=== PATIENT | female | born 1985 | race Caucasian/White ===

== ENCOUNTER → 2019-11-03 11:24 | Outpatient (BNVA) | payer OTHER, SELFPAY | PROVIDERS: Visit Provider Family Medicine | DX: R05 Cough (principal) | CPT/HCPCS: 87804 ==

== ENCOUNTER → 2020-07-26 09:41 | Outpatient (BNVA) | payer OTHER, SELFPAY | PROVIDERS: Visit Provider Family Medicine Adult Medicine | DX: E66.01 Morbid (severe) obesity due to excess calories (principal); Z68.41 Body mass index [BMI] 40.0-44.9, adult; R07.9 Chest pain, unspecified; Z82.49 Family history of ischemic heart disease and other diseases of the circulatory system; F41.9 Anxiety disorder, unspecified; Z83.3 Family history of diabetes mellitus; J30.2 Other seasonal allergic rhinitis | CPT/HCPCS: 80053; 80061; 82550; 82552; 84443; 84484; 85025 ==

== ENCOUNTER → 2020-12-25 14:47 | Outpatient (BNVA) | payer OTHER, SELFPAY | PROVIDERS: Visit Provider Obstetrics & Gynecology | DX: Z12.4 Encounter for screening for malignant neoplasm of cervix (principal); Z01.419 Encounter for gynecological examination (general) (routine) without abnormal findings | CPT/HCPCS: 88175 ==